=== PATIENT | male | born 1945 | race Caucasian/White ===

== ENCOUNTER 2016-08-27 09:21 | Day surgery (SDC) | payer MEDICARE ==
[~2016-08-27] VITALS: Ht 180.3 cm; Wt 85.9 kg
[2016-08-27 10:33] VITALS: Ht 180.3 cm; Wt 85.9 kg
[2016-08-27] MEDS ORDERED: ATOR20TA38 PO (10:41)
[2016-08-27] MEDS ORDERED: ASPI-664 PO (10:41)
[2016-08-27] MEDS ORDERED: PANT40TA3 PO (10:41)
[2016-08-27] MEDS ORDERED: AMLO-147 PO (10:41)
[2016-08-27] MEDS ORDERED: PROPOFOL 20 ML ONE (10:54)
[2016-08-27] MEDS ORDERED: MIDAZOLAM 1 MG/ML 2 ML INJ ONE ×2 (10:55)
[2016-08-27 11:09] VITALS: BP 137/63; PULSE 67; RESP 20
[2016-08-27 12:05] VITALS: BP 113/67; PULSE 60; RESP 12
--- NOTE | 2016-08-27 12:26 | GILP ---
DATE OF PROCEDURE: NAME OF PROCEDURE: Colonoscopy and biopsy. SURGEON: Irasema Tai MD PREOPERATIVE DIAGNOSES: 1. Change in the bowel habit. 2. History of colon polyps. POSTOPERATIVE DIAGNOSES: 1. Colonoscopy all the way to the cecum. 2. Three small sigmoid colon polyps that were removed using the biopsy forceps. 3. Diverticulosis of the colon. 4. Internal hemorrhoids. INDICATION FOR THE PROCEDURE: Mr. Paul Kamara is a 71-year-old male patient who has noticed a change i n the bowel habit. The patient has a history of colon polyps. His last colonoscopy was more than 5 years ago. The patient was scheduled for a followup colonoscopy. The procedure and possible complications were well explained to the patient. The patient understood and consented to the procedure. DESCRIPTION OF PROCEDURE: Under the influence of anesthesia the colonoscope was carefully introduce d in the rectum and under direct vision it was advanced all the way to the cecum. FINDINGS: The patient had 3 small sigmoid colon polyps and they were removed using the biopsy force ps. The patient was noted to have diverticulosis of the colon and internal hemorrhoids. He tolerated the procedure very well and there was no complication from the procedure. At the end o f the procedure he was awake with stable vital signs and he was discharged home to the care of his [facility]. IMPRESSION: 1. Colonoscopy all the way to the cecum. 2. Three small sigmoid colon polyps were removed using the biopsy forceps. 3. Diverticulosis of the colon. 4. Internal hemorrhoids. PLAN: 1. Await histopathology report. 2. Next screening colonoscopy in 5 years. Dictated By: IRASEMA CREWS/LENY Conf#: [id number] DID#: [id number]
== END 2016-08-27 14:19 | disposition home or self-care (01) ==
LOC: GIL 09:21
PROVIDERS: ATTEND Internal Medicine Gastroenterology
DX: Z12.11 Encounter for screening for malignant neoplasm of colon (principal); K63.5 Polyp of colon; D12.5 Benign neoplasm of sigmoid colon; K64.8 Other hemorrhoids; K57.90 Diverticulosis of intestine, part unspecified, without perforation or abscess without bleeding; I10 Essential (primary) hypertension
CPT/HCPCS: 45380; 88305; J2250